=== PATIENT | male | born 1980 | race Caucasian/White ===

== ENCOUNTER 2022-10-30 14:01 | Outpatient (CLI) | payer BC, MEDICAID, SELFPAY | END 2022-10-30 14:02 | disposition home or self-care (01) | PROVIDERS: PCP Family Medicine; Visit Provider Family Medicine | DX: Z00.00 Encounter for general adult medical examination without abnormal findings (principal); Z13.6 Encounter for screening for cardiovascular disorders; Z13.1 Encounter for screening for diabetes mellitus | CPT/HCPCS: 80053; 80061 ==

== ENCOUNTER 2022-11-18 07:55 | Outpatient (CLI) | payer BC, MEDICAID, SELFPAY | END 2022-11-18 07:56 | disposition home or self-care (01) | LOC: NFLDREF 11-19 14:25 | PROVIDERS: PCP Family Medicine; Referring Provider Family Medicine; Visit Provider Family Medicine | DX: Z00.00 Encounter for general adult medical examination without abnormal findings (principal); Z13.6 Encounter for screening for cardiovascular disorders | CPT/HCPCS: 80061 ==

== ENCOUNTER 2023-04-16 14:30 | Outpatient (CLI) | payer BC, SELFPAY | END 2023-04-16 14:31 | disposition home or self-care (01) | LOC: FRMREF 14:31 | PROVIDERS: PCP Family Medicine; Visit Provider Family Medicine | DX: K21.9 Gastro-esophageal reflux disease without esophagitis (principal); M54.9 Dorsalgia, unspecified | CPT/HCPCS: 80053 ==

== ENCOUNTER 2023-04-28 15:22 | Outpatient (CLI) | payer BC, SELFPAY ==
--- NOTE | 2023-04-28 16:00 | CRLHL7_ITS ---
For Patients: As a result of the Century Cures Act, medical imaging exams and procedure reports are released immediately into your electronic medical record. You may view this report before your referring provider. If you have questions, please contact your health care provider. INDICATION: Right/mid back pain TECHNIQUE: Conventional two-dimensional grayscale ultrasound of the right upper quadrant. COMPARISON: None. FINDINGS: The gallbladder is normal, with no evidence of stones. No gallbladder wall thickening or pericholecystic fluid is demonstrated. The patient is reportedly not tender over the gallbladder. No biliary ductal dilation is evident. The common bile duct measures 5 mm. The liver is normal in size, shape and echogenicity. The pancreas is within normal limits. The right kidney is unremarkable. The visualized portion of the abdominal aorta and inferior vena cava are negative. IMPRESSION: Negative right upper quadrant ultrasound. Dictated by Torrey López MD @ 04/29/2023 8:18:43 AM (Electronically Signed)
== END 2023-04-28 15:23 | disposition home or self-care (01) ==
LOC: US 15:23
PROVIDERS: PCP Family Medicine; Visit Provider Family Medicine
DX: M54.9 Dorsalgia, unspecified (principal)
CPT/HCPCS: 76705

== ENCOUNTER 2025-02-28 14:52 | Outpatient (CLI) | payer BC, SELFPAY ==
--- NOTE | 2025-02-28 15:30 | CRLHL7_ITS ---
For Patients: As a result of the Century Cures Act, medical imaging exams and procedure reports are released immediately into your electronic medical record. You may view this report before your referring provider. If you have questions, please contact your health care provider. EXAM: MRI OF THE RIGHT SHOULDER, WITHOUT CONTRAST CLINICAL INDICATION: Acute on chronic pain. PRIOR SURGERY: None reported. COMPARISON PLAIN FILMS: 13 February 2025. COMPARISON CROSS-SECTIONAL IMAGING STUDIES: None available at time of interpretation. TECHNICAL: Axial, sagittal oblique and coronal oblique T1, PD, PD FS and T2-weighted images. FINDINGS: GLENOHUMERAL JOINT: Effusion/Cyst: Physiologic quantity of joint fluid. No synovitis. No paralabral or periarticular cyst or ganglion. Humeral Head Articular Cartilage: No osteochondral lesion or abnormality. Glenoid Articular Cartilage: No osteochondral lesion or abnormality. Loose Bodies: No appreciable loose bodies. Capsule: Mildly patulous axillary recess with slightly thickened minimally edematous appearance of the capsule. OSSEOUS STRUCTURES: No fracture, marrow edema or marrow replacement process. CORACOACROMIAL ARCH: Acromial Morphology: Type 1 acromial morphology. Mild anterior downsloping. No os acromiale. No significant subacromial spur. Lateral acromial thickness is 6 mm. Acromiohumeral Interval: The acromiohumeral interval is adequately patent. At its narrowest, the interval measures 7 mm. No abnormal thickening of the coracoacromial ligament. Coracohumeral Interval: The coracohumeral interval is normal. At its narrowest, the coracohumeral interval measures greater than 10 mm. Coracoid index is 10 mm. ACROMIOCLAVICULAR JOINT REGION: AC Joint: Minor arthrosis with a few shallow subchondral cysts and surrounding sclerosis and edema in the distal clavicle. Ligaments: The coracoclavicular ligaments are intact. BURSAE: Subacromial-Subdeltoid: No abnormal bursal edema, thickening or bursal fluid. Subcoracoid: No abnormal bursal edema, thickening or bursal fluid. ROTATOR CUFF TENDONS AND MUSCLES AND DELTOID: Supraspinatus: No tendinosis, tendon tearing, muscle atrophy or muscle edema. Infraspinatus: No tendinosis, tendon tearing, muscle atrophy or muscle edema. Teres Minor: No tendinosis, tendon tearing, muscle atrophy or muscle edema. Subscapularis: No tendinosis, tendon tearing, muscle atrophy or muscle edema. Deltoid: No muscle atrophy or edema. BICEPS TENDON, LONG HEAD: The long head of the biceps tendon is appropriately positioned within the bicipital groove without tendon subluxation or dislocation. The biceps hermes mechanism is intact. The biceps anchor appears grossly intact. There is no significant tendinosis or tendon tearing. Large volume of circumferential fluid and some hazy synovitis in the tendon sheath. GLENOID LABRUM: Within the limitations of non-arthrographic technique, the superior labrum and biceps-labral complex are intact. The anteroinferior labrum is intact without Bankart or Bankart-variant labral tear. The remainder of the labrum is similarly intact. OTHER FINDINGS: There is no abnormality within the suprascapular or spinoglenoid notches nor within the quadrilateral space. No axillary adenopathy or mass. IMPRESSION: 1. Biceps tenosynovitis. 2. Correlate clinically for mild glenohumeral capsulitis. 3. Mild AC DJD. Dictated by Dru Patton MD @ 03/01/2025 4:05:52 PM (Electronically Signed)
== END 2025-02-28 14:53 | disposition home or self-care (01) ==
LOC: MRI 14:54
PROVIDERS: Visit Provider Physician Assistant Medical
DX: M25.511 Pain in right shoulder (principal); M65.811 Other synovitis and tenosynovitis, right shoulder; M77.8 Other enthesopathies, not elsewhere classified; M19.011 Primary osteoarthritis, right shoulder; S49.91XA Unspecified injury of right shoulder and upper arm, initial encounter
CPT/HCPCS: 73221